=== PATIENT | female | born 2000 | race Caucasian/White ===

== ENCOUNTER 2023-07-01 12:28 | Emergency (ER) | payer MEDICAID ==
[~2023-07-01] VITALS: Ht 165.1 cm; Wt 120.0 kg
[2023-07-01 12:32] VITALS: BP 130/75; PULSE 103; RESP 16; TEMP 98.5; O2SAT 100
== END 2023-07-01 14:28 | disposition home or self-care (01) ==
LOC: ER 12:28
DX: F43.9 Reaction to severe stress, unspecified (principal); J45.909 Unspecified asthma, uncomplicated
CPT/HCPCS: 71045; 99283